=== PATIENT | female | born 1965 | race Caucasian/White ===

== ENCOUNTER 2017-10-05 10:07 | Emergency (ER) | payer OTHER ==
[~2017-10-05] VITALS: Ht 162.6 cm; Wt 72.6 kg
[~2017-10-05 10:07] MED LIST: MEDROLDOSEPACK PO; PREDNISONE50 MG PO; PROAIR HFA8.5 GM PO; VENTOLIN HFA 1818 GM INH
[2017-10-05] MEDS ORDERED: PREDNISONE 20 M20 MG PO (13:20)
[2017-10-05 13:26] VITALS: BP 152/56
== END 2017-10-05 13:27 | disposition home or self-care (01) ==
LOC: M.ERS 10:07
DX: J45.901 Unspecified asthma with (acute) exacerbation (principal); F41.9 Anxiety disorder, unspecified; F17.210 Nicotine dependence, cigarettes, uncomplicated; Z88.5 Allergy status to narcotic agent

== ENCOUNTER 2017-10-28 22:41 | Emergency (ER) | payer OTHER ==
[~2017-10-28] VITALS: Ht 162.6 cm; Wt 72.6 kg
[~2017-10-28 22:41] MED LIST changes: +PREDNISONE 20 M20 MG PO
[2017-10-29] MEDS ORDERED: PREDNISONE50 MG PO (00:23)
[2017-10-29] MEDS ORDERED: NEBULIZER MISCELL (00:23)
[2017-10-29] MEDS ORDERED: DUONEB 2.5-0.5 M3 ML INH (00:23)
[2017-10-29 01:28] VITALS: BP 114/54
== END 2017-10-29 01:30 | disposition home or self-care (01) ==
LOC: M.ERS 22:41
DX: J44.1 Chronic obstructive pulmonary disease with (acute) exacerbation (principal); F41.9 Anxiety disorder, unspecified; F17.210 Nicotine dependence, cigarettes, uncomplicated; Z88.5 Allergy status to narcotic agent

== ENCOUNTER 2017-11-01 07:07 | Emergency (ER) | payer OTHER ==
[~2017-11-01] VITALS: Ht 162.6 cm; Wt 74.8 kg
[~2017-11-01 07:07] MED LIST changes: +DUONEB 2.5-0.5 M3 ML INH; +NEBULIZER MISCELL
[2017-11-01 07:56] LABS: HEMATOCRIT 41.2 % (37.0-47.0); HEMOGLOBIN 13.3 gm/dL (12.0-15.0); MCH 26.7 pg (26.0-34.0); MCHC 32.3 g/dL (28.0-37.0); MCV 82.6 fL (80.0-100.0); MPV 7.5 fl. (7.2-11.1); RBC 4.99 mil/uL (4.20-5.00); RDW-CV 15.4 % (10.5-14.5)
[2017-11-01 08:03] LABS: ANION GAP 10 mmol/L (7-16); BUN 26 mg/dL (7-18); CHLORIDE 105 mmol/L (98-107); CO2 23 mmol/L (21-32); GLUCOSE 115 mg/dL (70-99); POTASSIUM 3.8 mmol/L (3.5-5.1); SODIUM 138 mmol/L (136-145)
[2017-11-01 08:11] LABS: TROPONIN-I LEVEL <0.06 ng/mL (<0.06)
[2017-11-01] MEDS ORDERED: VENTOLIN HFA 1818 GM INH (08:53)
[2017-11-01] MEDS ORDERED: ALBUTEROL2.5 MG/0.5 INH (08:55)
[2017-11-01 09:02] VITALS: BP 110/56
== END 2017-11-01 09:03 | disposition home or self-care (01) ==
LOC: M.ERS 07:07
PROVIDERS: Emergency Medicine Emergency Medical Services
DX: J45.901 Unspecified asthma with (acute) exacerbation (principal); F41.9 Anxiety disorder, unspecified; F17.210 Nicotine dependence, cigarettes, uncomplicated; Z88.5 Allergy status to narcotic agent

== ENCOUNTER 2018-01-21 14:00 | Emergency (ER) | payer OTHER ==
[~2018-01-21] VITALS: Ht 162.6 cm; Wt 73.0 kg
[~2018-01-21 14:00] MED LIST changes: +ALBUTEROL2.5 MG/0.5 INH
[2018-01-21 14:22] LABS: ABSOLUTE BASOPHILS 0.1 thou/uL (0.0-0.2); ABSOLUTE EOSINOPHILS 0.4 thou/uL (0.0-0.7); ABSOLUTE LYMPHOCYTES 2.2 thou/uL (0.8-5.3); ABSOLUTE MONOCYTES 0.6 thou/uL (0.0-1.2); ABSOLUTE NEUTROPHILS 3.9 thou/uL (1.6-8.1); EOSINOPHILS 5.2 %; HEMATOCRIT 42.8 % (37.0-47.0); HEMOGLOBIN 13.9 gm/dL (12.0-15.0); LYMPHOCYTES 31.2 %; MCH 26.2 pg (26.0-34.0); MCHC 32.6 g/dL (28.0-37.0); MCV 80.3 fL (80.0-100.0); MONOCYTES 8.1 %; MPV 7.9 fl. (7.2-11.1); NUCLEATED RBCS 0 /100WBC; PLATELET COUNT* 304 thou/uL (150-400); POLYS 54.5 %; RBC 5.33 mil/uL (4.20-5.00); RDW-CV 16.2 % (10.5-14.5); WBC 7.2 thou/uL (4.0-11.0)
[2018-01-21 14:33] LABS: CALCIUM 8.9 mg/dL (8.5-10.1); CREATININE 0.8 mg/dL (0.6-1.3); POTASSIUM 4.1 mmol/L (3.5-5.1)
[2018-01-21 14:37] LABS: ALBUMIN 3.6 g/dL (3.4-5.0); TOTAL BILIRUBIN 0.3 mg/dL (<0.1-1.0)
[2018-01-21] MEDS ORDERED: MEDROL DOSPAK21 TA1 PO (14:57)
[2018-01-21 15:05] VITALS: BP 111/57
== END 2018-01-21 15:06 | disposition home or self-care (01) ==
LOC: M.ERS 14:00
PROVIDERS: Emergency Medicine
DX: J45.901 Unspecified asthma with (acute) exacerbation (principal); F41.9 Anxiety disorder, unspecified; Z88.5 Allergy status to narcotic agent; F17.210 Nicotine dependence, cigarettes, uncomplicated

== ENCOUNTER 2018-05-30 23:13 | Emergency (ER) | payer OTHER ==
[~2018-05-30] VITALS: Ht 160 cm; Wt 73.0 kg
[~2018-05-30 23:13] MED LIST changes: +MEDROL DOSPAK21 TA1 PO
[2018-05-30 23:15] VITALS: BP 139/59
[2018-05-30] MEDS ORDERED: NOHOMEMEDICATIONS (23:22)
[2018-05-30] MEDS ORDERED: PREDNISONE50 MG PO (23:30)
[2018-05-30] MEDS ORDERED: PROAIR HFA8.5 GM INH (23:30)
== END 2018-05-30 23:40 | disposition home or self-care (01) ==
LOC: M.ERS 23:13
DX: J45.909 Unspecified asthma, uncomplicated (principal); Z76.0 Encounter for issue of repeat prescription; F41.9 Anxiety disorder, unspecified; F17.210 Nicotine dependence, cigarettes, uncomplicated; Z88.6 Allergy status to analgesic agent

== ENCOUNTER 2018-06-02 09:57 | Inpatient (IN) | payer OTHER ==
[~2018-06-02] VITALS: Ht 160 cm; Wt 83.9 kg
[~2018-06-02 09:57] MED LIST changes: +NOHOMEMEDICATIONS; +PROAIR HFA8.5 GM INH
[2018-06-02 10:01] VITALS: BP 186/72
[2018-06-02 11:33] LABS: ABSOLUTE BASOPHILS 0.1 thou/uL (0.0-0.2); ABSOLUTE EOSINOPHILS 0.3 thou/uL (0.0-0.7); ABSOLUTE LYMPHOCYTES 1.7 thou/uL (0.8-5.3); ABSOLUTE MONOCYTES 0.7 thou/uL (0.0-1.2); ABSOLUTE NEUTROPHILS 4.7 thou/uL (1.6-8.1); BASOPHILS 1.2 %; EOSINOPHILS 4.1 %; HEMATOCRIT 41.8 % (37.0-47.0); HEMOGLOBIN 13.3 gm/dL (12.0-15.0); LYMPHOCYTES 23.2 %; MCH 26.8 pg (26.0-34.0); MCHC 31.9 g/dL (28.0-37.0); MONOCYTES 8.9 %; MPV 7.9 fl. (7.2-11.1); NUCLEATED RBCS 0 /100WBC; PLATELET COUNT* 323 thou/uL (150-400); POLYS 62.6 %; RBC 4.97 mil/uL (4.20-5.00); RDW-CV 15.8 % (10.5-14.5); WBC 7.5 thou/uL (4.0-11.0)
[2018-06-02 11:40] LABS: ANION GAP 5 mmol/L (7-16); APTT 26.4 Seconds (25.0-31.3); BUN 21 mg/dL (7-18); CALCIUM 8.7 mg/dL (8.5-10.1); CHLORIDE 104 mmol/L (98-107); CO2 31 mmol/L (21-32); CREATININE 0.7 mg/dL (0.6-1.3); GLUCOSE 108 mg/dL (70-99); INR 1.1; POTASSIUM 4.2 mmol/L (3.5-5.1); PROTIME 10.9 Seconds (9.20-11.50); SODIUM 140 mmol/L (136-145)
[2018-06-02 11:51] LABS: ALBUMIN 3.4 g/dL (3.4-5.0); ALKALINE PHOSPHATASE 60 U/L (46-116); LIPASE 150 U/L (73-393); NT-PRO BRAIN NAT PEPTIDE 115 pg/mL (<300); SGOT 14 U/L (15-37); SGPT 19 U/L (30-65); TOTAL BILIRUBIN 0.2 mg/dL (<0.1-1.0); TOTAL PROTEIN 7.9 g/dL (6.4-8.2); TROPONIN-I LEVEL <0.06 ng/mL (<0.06)
[2018-06-02 12:17] VITALS: BP 120/57
[2018-06-02 12:33] VITALS: BP 116/51
[2018-06-02 16:15] VITALS: BP 122/63
--- NOTE | 2018-06-02 17:15 | EKG ---
[place] [address] ELECTROCARDIOGRAM REPORT Name: GEORGE BEE Room: [address] ADM IN [facility]#: [id number] Admission: 06/02/18 Attend Phys: Pelon Weaver MD Discharge: Date of : 67 Report #: [id number] THIS REPORT FOR: //name// [facility] ED Test Date: 2018-06-02 Test Time: 10:20:55 Pat Name: GEORGE BEE Department: Room: [facility] Gender: Biodiesel Product Development Manager: Rinku GOLDEN : 1965 Requested By: Filipe Nassar Order Number: [id number] MD: Anderson Degroot Measurements Intervals [place] Rate: 68 P: 80 [place]: 180 QRS: 14 QRSD: 107 T: 56 QT: 429 QTc: 457 Interpretive Statements Sinus rhythm Compared to ECG 09/03/2017 03:04:38 ST (T wave) deviation no longer present Electronically Signed On 06-02-2018 17:15:07 CDT by Anderson Degroot [email or web address] <ELECTRONICALLY SIGNED> By: Anderson Degroot MD, [facility] 06/02/18 1022 1020 1020 Anderson Degroot MD, [facility] /EPI
[2018-06-02 20:00] VITALS: BP 126/67
[2018-06-03] VITALS: BP 132/60
[2018-06-03 04:00] VITALS: BP 112/79
[2018-06-03 04:12] LABS: NUCLEATED RBCS 0 /100WBC; RDW-CV 15.8 % (10.5-14.5)
[2018-06-03 04:15] LABS: HEMATOCRIT 39.3 % (37.0-47.0); HEMOGLOBIN 12.8 gm/dL (12.0-15.0); MCHC 32.5 g/dL (28.0-37.0); MCV 83.1 fL (80.0-100.0); MPV 8.3 fl. (7.2-11.1); PLATELET COUNT* 281 thou/uL (150-400); RBC 4.73 mil/uL (4.20-5.00); WBC 15.8 thou/uL (4.0-11.0)
[2018-06-03 04:42] LABS: CALCIUM 8.7 mg/dL (8.5-10.1); POTASSIUM 4.2 mmol/L (3.5-5.1)
[2018-06-03 05:54] LABS: ABSOLUTE LYMPHOCYTES 0.5 thou/uL (0.8-5.3); ABSOLUTE MONOCYTES 0.2 thou/uL (0.0-1.2); ABSOLUTE NEUTROPHILS 15.2 thou/uL (1.6-8.1)
[2018-06-03 05:55] LABS: ANISOCYTOSIS 1+; OVALOCYTES 1+; PLATELET ESTIMATE ADEQUATE; POIKILOCYTOSIS 1+
[2018-06-03 07:30] VITALS: BP 118/67
[2018-06-03 09:10] VITALS: BP 118/67
[2018-06-03] MEDS ORDERED: PROTONIX40 M2 PO (10:06)
[2018-06-03] MEDS ORDERED: PREDNISONE 10 M10 MG PO (10:07)
[2018-06-03] MEDS ORDERED: AZITHROMYCIN 2250 MG PO (10:08)
[2018-06-03] MEDS ORDERED: VENTOLIN HFA 1818 GM INH (10:09)
[2018-06-03 10:12] VITALS: BP 118/67
== END 2018-06-03 14:10 | disposition home or self-care (01) | DRG 202 ==
LOC: M.ERS 09:57 → M.TBA-ER 11:46 → M.ORTHSURG 11:46
PROVIDERS: Family Medicine; ADMIT Internal Medicine
DX: J45.901 Unspecified asthma with (acute) exacerbation (principal); J44.1 Chronic obstructive pulmonary disease with (acute) exacerbation; F41.9 Anxiety disorder, unspecified; F17.210 Nicotine dependence, cigarettes, uncomplicated; Z79.899 Other long term (current) drug therapy; Z88.6 Allergy status to analgesic agent; Z71.6 Tobacco abuse counseling

== ENCOUNTER 2018-06-14 07:44 | Emergency (ER) | payer OTHER ==
[~2018-06-14] VITALS: Ht 160 cm; Wt 83.1 kg
[~2018-06-14 07:44] MED LIST changes: +AZITHROMYCIN 2250 MG PO; +PREDNISONE 10 M10 MG PO; +PROTONIX40 M2 PO
[2018-06-14] MEDS ORDERED: VENTOLIN HFA 1818 GM INH (07:52)
[2018-06-14] MEDS ORDERED: PREDNISONE 20 M20 M1 PO (07:52)
[2018-06-14 08:05] VITALS: BP 90/60
--- NOTE | 2018-06-15 10:43 | EKG ---
[place] [address] ELECTROCARDIOGRAM REPORT Name: GEORGE BEE Room: [facility]#: [id number] Admission: 06/14/18 Attend Phys: Discharge: 06/14/18 Date of : 67 Report #: [id number] THIS REPORT FOR: //name// [facility] ED Test Date: 2018-06-14 Test Time: 07:49:02 Pat Name: GEORGE BEE Department: Room: Gender: F Microbiology Lab Manager: TREMAYNE : 1965 Requested By: Filipe Nassar Order Number: [id number] MD: Anderson Degroot Measurements Intervals [place] Rate: 76 P: [place]: QRS: -2 QRSD: 113 T: 54 QT: 436 QTc: 491 Interpretive Statements sinus rhythm Borderline intraventricular conduction delay artifact noted Borderline prolonged QT interval Compared to ECG 06/02/2018 10:20:55 no change Electronically Signed On 06-15-2018 10:42:50 CDT by Anderson Degroot [email or web address] <ELECTRONICALLY SIGNED> By: Anderson Degroot MD, [facility] 06/15/18 1042 0749 0749 Anderson Degroot MD, FACC /EPI
== END 2018-06-14 08:06 | disposition home or self-care (01) ==
LOC: M.ERS 07:44
DX: J45.901 Unspecified asthma with (acute) exacerbation (principal)

== ENCOUNTER 2018-06-20 04:14 | Emergency (ER) | payer OTHER ==
[~2018-06-20] VITALS: Ht 160 cm; Wt 77.1 kg
[~2018-06-20 04:14] MED LIST changes: +PREDNISONE 20 M20 M1 PO
[2018-06-20 04:54] LABS: ABSOLUTE BASOPHILS 0.1 thou/uL (0.0-0.2); ABSOLUTE EOSINOPHILS 0.6 thou/uL (0.0-0.7); ABSOLUTE LYMPHOCYTES 2.1 thou/uL (0.8-5.3); ABSOLUTE MONOCYTES 0.7 thou/uL (0.0-1.2); ABSOLUTE NEUTROPHILS 4.9 thou/uL (1.6-8.1); EOSINOPHILS 6.7 %; HEMATOCRIT 41.9 % (37.0-47.0); HEMOGLOBIN 13.5 gm/dL (12.0-15.0); LYMPHOCYTES 25.1 %; MCH 26.9 pg (26.0-34.0); MCHC 32.3 g/dL (28.0-37.0); MCV 83.1 fL (80.0-100.0); NUCLEATED RBCS 0 /100WBC; PLATELET COUNT* 318 thou/uL (150-400); POLYS 59.2 %; RBC 5.04 mil/uL (4.20-5.00); RDW-CV 16.4 % (10.5-14.5); WBC 8.3 thou/uL (4.0-11.0)
[2018-06-20 05:20] LABS: ANION GAP 4 mmol/L (7-16); BUN 14 mg/dL (7-18); CALCIUM 9.2 mg/dL (8.5-10.1); CHLORIDE 107 mmol/L (98-107); CO2 30 mmol/L (21-32); CREATININE 0.9 mg/dL (0.6-1.3); GLUCOSE 97 mg/dL (70-99); POTASSIUM 3.7 mmol/L (3.5-5.1); SODIUM 141 mmol/L (136-145)
[2018-06-20 05:21] LABS: INR 1.1; PROTIME 11.2 Seconds (9.20-11.50)
[2018-06-20 05:30] LABS: ALBUMIN 3.6 g/dL (3.4-5.0); ALKALINE PHOSPHATASE 69 U/L (46-116); NT-PRO BRAIN NAT PEPTIDE 304 pg/mL (<300); SGOT 15 U/L (15-37); SGPT 40 U/L (30-65); TOTAL BILIRUBIN 0.4 mg/dL (<0.1-1.0); TOTAL PROTEIN 7.6 g/dL (6.4-8.2); TROPONIN-I LEVEL <0.06 ng/mL (<0.06)
[2018-06-20] MEDS ORDERED: PREDNISONE50 MG PO (05:49)
[2018-06-20] MEDS ORDERED: LASIX 20 MG TAB20 MG PO (05:49)
[2018-06-20 06:11] VITALS: BP 129/51
--- NOTE | 2018-06-20 15:10 | EKG ---
[place] [address] ELECTROCARDIOGRAM REPORT Name: GEORGE BEE Room: [facility]#: [id number] Admission: 06/20/18 Attend Phys: Discharge: 06/20/18 Date of : 67 Report #: [id number] THIS REPORT FOR: //name// [facility] ED Test Date: 2018-06-20 Test Time: 04:44:55 Pat Name: GEORGE BEE Department: Room: Gender: F Grease Buffer: EDDIE : 1965 Requested By: Merry Li Order Number: [id number] MD: Ozzy Coker Measurements Intervals [place] Rate: 79 P: 55 RI: 157 QRS: 7 QRSD: 109 T: 51 QT: 424 QTc: 487 Interpretive Statements Sinus rhythm Borderline prolonged QT interval Baseline wander in lead(s) I,III,aVL Compared to ECG 06/14/2018 07:49:02 No significant changes Electronically Signed On 06-20-2018 15:10:33 CDT by Ozzy Coker [email or web address] <ELECTRONICALLY SIGNED> By: Fany Coker MD, [facility] 06/20/18 1510 0444 0444 Fany Coker MD, [facility] /EPI
== END 2018-06-20 06:00 | disposition home or self-care (01) ==
LOC: M.ERS 04:14
PROVIDERS: Emergency Medicine
DX: J98.01 Acute bronchospasm (principal); F41.9 Anxiety disorder, unspecified; Z90.49 Acquired absence of other specified parts of digestive tract

== ENCOUNTER 2018-06-27 22:20 | Emergency (ER) | payer OTHER ==
[~2018-06-27] VITALS: Ht 160 cm; Wt 86.2 kg
[~2018-06-27 22:20] MED LIST changes: +LASIX 20 MG TAB20 MG PO
[2018-06-28 00:59] VITALS: BP 115/41
== END 2018-06-28 01:00 | disposition home or self-care (01) ==
LOC: M.ERS 22:20
DX: J45.901 Unspecified asthma with (acute) exacerbation (principal); F41.9 Anxiety disorder, unspecified; F17.210 Nicotine dependence, cigarettes, uncomplicated; Z88.6 Allergy status to analgesic agent

== ENCOUNTER 2018-08-06 20:29 | Emergency (ER) | payer OTHER ==
[~2018-08-06] VITALS: Ht 160 cm; Wt 87.1 kg
[2018-08-06] MEDS ORDERED: VENTOLIN HFA 1818 GM INH (20:45)
[2018-08-06] MEDS ORDERED: PREDNISONE 20 M20 M1 PO (20:45)
[2018-08-06 21:35] VITALS: BP 134/72
--- NOTE | 2018-08-07 12:26 | EKG ---
[place] [address] ELECTROCARDIOGRAM REPORT Name: GEORGE BEE Room: [facility]#: [id number] Admission: 08/06/18 Attend Phys: Discharge: 08/06/18 Date of : 67 Report #: [id number] THIS REPORT FOR: //name// [facility] ED Test Date: 2018-08-06 Test Time: 20:40:50 Pat Name: GEORGE BEE Department: Room: Gender: F Submersible Pilot: SHAWN : 1965 Requested By: Filipe Nassar Order Number: [id number] MD: Anderson Degroot Measurements Intervals [place] Rate: 86 P: 70 VT: 157 QRS: -1 QRSD: 99 T: 60 QT: 387 QTc: 463 Interpretive Statements Sinus rhythm Compared to ECG 06/20/2018 04:44:55 No significant changes Electronically Signed On 08-07-2018 12:26:13 COIL REWIND MACHINE OPERATOR by Anderson Degroot [email or web address] <ELECTRONICALLY SIGNED> By: Anderson Degroot MD, [facility] 08/07/18 1226 204 39 Anderson Degroot MD, FACC /EPI
== END 2018-08-06 21:37 | disposition home or self-care (01) ==
LOC: M.ERS 20:29
DX: J45.901 Unspecified asthma with (acute) exacerbation (principal); F41.9 Anxiety disorder, unspecified; Z88.6 Allergy status to analgesic agent

== ENCOUNTER 2018-08-17 23:53 | Emergency (ER) | payer OTHER ==
[~2018-08-17] VITALS: Ht 160 cm; Wt 72.6 kg
[2018-08-18 00:28] LABS: ABSOLUTE BASOPHILS 0.1 thou/uL (0.0-0.2); ABSOLUTE EOSINOPHILS 0.5 thou/uL (0.0-0.7); ABSOLUTE LYMPHOCYTES 1.9 thou/uL (0.8-5.3); ABSOLUTE MONOCYTES 0.8 thou/uL (0.0-1.2); ABSOLUTE NEUTROPHILS 5.3 thou/uL (1.6-8.1); BASOPHILS 1.4 %; EOSINOPHILS 5.3 %; HEMATOCRIT 39.9 % (37.0-47.0); LYMPHOCYTES 21.9 %; MCH 27.1 pg (26.0-34.0); MCHC 32.5 g/dL (28.0-37.0); MCV 83.4 fL (80.0-100.0); MONOCYTES 9.5 %; MPV 7.7 fl. (7.2-11.1); NUCLEATED RBCS 0 /100WBC; PLATELET COUNT* 323 thou/uL (150-400); POLYS 61.9 %; RBC 4.79 mil/uL (4.20-5.00); RDW-CV 16.6 % (10.5-14.5); WBC 8.5 thou/uL (4.0-11.0)
[2018-08-18 00:37] LABS: CALCIUM 9.2 mg/dL (8.5-10.1); CREATININE 0.9 mg/dL (0.6-1.3); POTASSIUM 4.3 mmol/L (3.5-5.1)
[2018-08-18 00:42] LABS: ALBUMIN 3.3 g/dL (3.4-5.0); TOTAL BILIRUBIN 0.3 mg/dL (<0.1-1.0); TOTAL PROTEIN 7.3 g/dL (6.4-8.2)
[2018-08-18] MEDS ORDERED: PROAIR HFA8.5 GM INH (01:23)
[2018-08-18 01:35] VITALS: BP 112/51
== END 2018-08-18 01:35 | disposition home or self-care (01) ==
LOC: M.ERS 23:53
PROVIDERS: Emergency Medicine
DX: J45.901 Unspecified asthma with (acute) exacerbation (principal); F41.9 Anxiety disorder, unspecified; Z90.49 Acquired absence of other specified parts of digestive tract; F17.210 Nicotine dependence, cigarettes, uncomplicated; Z88.5 Allergy status to narcotic agent

== ENCOUNTER 2018-08-27 10:43 | Emergency (ER) | payer OTHER ==
[~2018-08-27] VITALS: Ht 177.8 cm; Wt 72.6 kg
[2018-08-27 11:05] LABS: ABSOLUTE BASOPHILS 0.1 thou/uL (0.0-0.2); ABSOLUTE EOSINOPHILS 0.3 thou/uL (0.0-0.7); ABSOLUTE LYMPHOCYTES 1.7 thou/uL (0.8-5.3); ABSOLUTE MONOCYTES 0.7 thou/uL (0.0-1.2); ABSOLUTE NEUTROPHILS 3.7 thou/uL (1.6-8.1); BASOPHILS 0.9 %; EOSINOPHILS 4.6 %; HEMATOCRIT 40.5 % (37.0-47.0); HEMOGLOBIN 13.2 gm/dL (12.0-15.0); LYMPHOCYTES 26.3 %; MCH 27.4 pg (26.0-34.0); MCHC 32.6 g/dL (28.0-37.0); MONOCYTES 11.3 %; MPV 7.5 fl. (7.2-11.1); NUCLEATED RBCS 0 /100WBC; PLATELET COUNT* 299 thou/uL (150-400); POLYS 56.9 %; RBC 4.82 mil/uL (4.20-5.00); RDW-CV 16.5 % (10.5-14.5); WBC 6.4 thou/uL (4.0-11.0)
[2018-08-27 11:13] LABS: ANION GAP 9 mmol/L (7-16); BUN 15 mg/dL (7-18); CALCIUM 8.8 mg/dL (8.5-10.1); CHLORIDE 106 mmol/L (98-107); CO2 27 mmol/L (21-32); CREATININE 0.9 mg/dL (0.6-1.3); GLUCOSE 95 mg/dL (70-99); POTASSIUM 3.4 mmol/L (3.5-5.1); SODIUM 142 mmol/L (136-145)
[2018-08-27 11:20] LABS: ALBUMIN 3.5 g/dL (3.4-5.0); ALKALINE PHOSPHATASE 66 U/L (46-116); LIPASE 80 U/L (73-393); SGOT 14 U/L (15-37); SGPT 25 U/L (30-65); TOTAL BILIRUBIN 0.3 mg/dL (<0.1-1.0); TOTAL PROTEIN 7.5 g/dL (6.4-8.2); TROPONIN-I LEVEL <0.06 ng/mL (<0.06)
[2018-08-27 12:28] LABS: URINE BILIRUBIN NEGATIVE (Negative); URINE BLOOD NEGATIVE (Negative); URINE CLARITY CLEAR; URINE COLOR YELLOW; URINE GLUCOSE-RANDOM NEGATIVE (Negative); URINE KETONES NEGATIVE (Negative); URINE LEUKOCYTES-REFLEX NEGATIVE (Negative); URINE NITRITE-REFLEX NEGATIVE (Negative); URINE PROTEIN NEGATIVE (Negative); URINE SPECIFIC GRAVITY 1.015 (1.005-1.030); URINE UROBILINOGEN 0.2 E.U./dl (0.2-1.0)
[2018-08-27] MEDS ORDERED: KEFLEX500 M1 PO (12:50)
[2018-08-27] MEDS ORDERED: PROAIR HFA8.5 GM INH (12:50)
[2018-08-27 13:12] VITALS: BP 108/52
--- NOTE | 2018-08-27 14:41 | EKG ---
[place] [address] ELECTROCARDIOGRAM REPORT Name: GEORGE BEE Room: [facility]#: [id number] Admission: 08/27/18 Attend Phys: Discharge: 08/27/18 Date of : 67 Report #: [id number] THIS REPORT FOR: //name// [facility] ED Test Date: 2018-08-27 Test Time: 11:00:38 Pat Name: GEORGE BEE Department: Room: Gender: F Cathodic Protection Technician: Rinku WEBB : 1965 Requested By: Becki Aguilar Order Number: [id number] MD: Anderson Degroot Measurements Intervals [place] Rate: 69 P: 59 [place]: 166 QRS: 11 QRSD: 103 T: 52 QT: 431 QTc: 462 Interpretive Statements Sinus rhythm artifact noted Baseline wander in lead(s) V6 Compared to ECG 08/06/2018 20:40:50 no change Electronically Signed On 08-27-2018 14:40:45 LINKING MACHINE OPERATOR by Anderson Degroot [email or web address] <ELECTRONICALLY SIGNED> By: Anderson Degroot MD, [facility] 08/27/18 1440 1100 1100 Anderson Degroot MD, [facility] /EPI
== END 2018-08-27 13:14 | disposition home or self-care (01) ==
LOC: M.ERS 10:43
PROVIDERS: Physician Assistant
DX: J20.9 Acute bronchitis, unspecified (principal); R59.1 Generalized enlarged lymph nodes; R10.11 Right upper quadrant pain; R10.13 Epigastric pain; R10.31 Right lower quadrant pain; F41.9 Anxiety disorder, unspecified; F17.210 Nicotine dependence, cigarettes, uncomplicated; Z88.6 Allergy status to analgesic agent

== ENCOUNTER 2019-08-15 03:53 | Emergency (ER) | payer OTHER ==
[~2019-08-15] VITALS: Ht 160 cm; Wt 72.6 kg
[~2019-08-15 03:53] MED LIST changes: +KEFLEX500 M1 PO
[2019-08-15] MEDS ORDERED: MEDROL DOSPAK21 TA1 PO (05:09)
[2019-08-15] MEDS ORDERED: VENTOLIN HFA 1818 GM INH (05:09)
[2019-08-15 05:15] VITALS: BP 100/78
== END 2019-08-15 05:15 | disposition home or self-care (01) ==
LOC: M.ERS 03:53
DX: J45.901 Unspecified asthma with (acute) exacerbation (principal); F41.9 Anxiety disorder, unspecified; F17.210 Nicotine dependence, cigarettes, uncomplicated; Z90.49 Acquired absence of other specified parts of digestive tract; Z88.5 Allergy status to narcotic agent

== ENCOUNTER 2019-08-27 15:30 | Emergency (ER) | payer OTHER ==
[~2019-08-27] VITALS: Ht 160 cm; Wt 72.6 kg
[2019-08-27] MEDS ORDERED: PREDNISONE 20 M20 M1 PO (15:52)
[2019-08-27 16:57] VITALS: BP 148/55
== END 2019-08-27 17:00 | disposition home or self-care (01) ==
LOC: M.ERS 15:30
DX: J45.901 Unspecified asthma with (acute) exacerbation (principal); F41.9 Anxiety disorder, unspecified; F17.210 Nicotine dependence, cigarettes, uncomplicated; Z90.49 Acquired absence of other specified parts of digestive tract; Z88.5 Allergy status to narcotic agent

== ENCOUNTER 2021-04-01 21:18 | Inpatient (IN) | payer OTHER ==
[~2021-04-01] VITALS: Ht 160 cm; Wt 90.7 kg
[2021-04-01 22:11] LABS: ABSOLUTE BASOPHILS 0.1 thou/uL (0.0-0.2); ABSOLUTE EOSINOPHILS 0.4 thou/uL (0.0-0.7); ABSOLUTE LYMPHOCYTES 1.5 thou/uL (0.8-5.3); ABSOLUTE NEUTROPHILS 11.9 thou/uL (1.6-8.1); BASOPHILS 0.9 %; EOSINOPHILS 2.5 %; HEMATOCRIT 41.7 % (37.0-47.0); HEMOGLOBIN 13.7 gm/dL (12.0-15.0); LYMPHOCYTES 9.8 %; MCH 26.6 pg (26.0-34.0); MCHC 32.7 g/dL (28.0-37.0); MCV 81.1 fL (80.0-100.0); MONOCYTES 6.7 %; NUCLEATED RBCS 0 /100WBC; POLYS 80.1 %; RBC 5.14 mil/uL (4.20-5.00); RDW-CV 15.9 % (10.5-14.5); WBC 14.8 thou/uL (4.0-11.0)
[2021-04-01 22:13] LABS: CREATININE 0.9 mg/dL (0.6-1.3)
[2021-04-01 22:17] LABS: ALBUMIN 3.4 g/dL (3.4-5.0); MAGNESIUM 2.2 mg/dL (1.8-2.4); TOTAL BILIRUBIN 0.4 mg/dL (<0.1-1.0); TOTAL PROTEIN 9.4 g/dL (6.4-8.2)
[2021-04-01 22:37] LABS: PLATELET ESTIMATE INCREASED
[2021-04-01 22:41] LABS: PLATELET COUNT* 541 thou/uL (150-400)
[2021-04-01 23:29] LABS: URINE BILIRUBIN NEGATIVE (Negative); URINE BLOOD NEGATIVE (Negative); URINE CLARITY CLEAR; URINE COLOR YELLOW; URINE GLUCOSE-RANDOM NEGATIVE (Negative); URINE KETONES TRACE (Negative); URINE LEUKOCYTES-REFLEX NEGATIVE (Negative); URINE NITRITE-REFLEX NEGATIVE (Negative); URINE PROTEIN NEGATIVE (Negative); URINE UROBILINOGEN 0.2 E.U./dl (0.2-1.0)
[2021-04-02 04:24] VITALS: BP 156/82
[2021-04-02 08:49] VITALS: BP 166/83
[2021-04-02 12:34] VITALS: BP 135/72
[2021-04-02 13:32] VITALS: BP 135/72
[2021-04-02 20:18] VITALS: BP 175/90
[2021-04-02 23:54] VITALS: BP 130/55
[2021-04-03 05:30] LABS: HEMATOCRIT 31.2 % (37.0-47.0); MCH 26.6 pg (26.0-34.0); MCHC 33.2 g/dL (28.0-37.0); MCV 80.2 fL (80.0-100.0); MPV 6.6 fl. (7.2-11.1); RBC 3.89 mil/uL (4.20-5.00); RDW-CV 16.3 % (10.5-14.5); WBC 10.9 thou/uL (4.0-11.0)
[2021-04-03 05:35] LABS: CREATININE 0.9 mg/dL (0.6-1.3); HEMOGLOBIN 10.3 gm/dL (12.0-15.0); POTASSIUM 4.2 mmol/L (3.5-5.1)
[2021-04-03 07:50] VITALS: BP 133/61
[2021-04-03 16:44] VITALS: BP 120/37
[2021-04-03 17:23] LABS: ABSOLUTE BASOPHILS 0.1 thou/uL (0.0-0.2); ABSOLUTE EOSINOPHILS 0.1 thou/uL (0.0-0.7); ABSOLUTE MONOCYTES 1.3 thou/uL (0.0-1.2); ABSOLUTE NEUTROPHILS 10.4 thou/uL (1.6-8.1); EOSINOPHILS 0.4 %; HEMATOCRIT 30.9 % (37.0-47.0); HEMOGLOBIN 10.1 gm/dL (12.0-15.0); LYMPHOCYTES 14.7 %; MCH 26.2 pg (26.0-34.0); MCHC 32.6 g/dL (28.0-37.0); MCV 80.3 fL (80.0-100.0); MPV 6.6 fl. (7.2-11.1); NUCLEATED RBCS 0 /100WBC; PLATELET COUNT* 443 thou/uL (150-400); POLYS 74.9 %; RBC 3.86 mil/uL (4.20-5.00); RDW-CV 15.7 % (10.5-14.5); WBC 13.8 thou/uL (4.0-11.0)
[2021-04-03 20:00] VITALS: BP 112/47
[2021-04-04 04:56] LABS: HEMATOCRIT 29.3 % (37.0-47.0); HEMOGLOBIN 9.9 gm/dL (12.0-15.0); MCHC 33.7 g/dL (28.0-37.0); MCV 80.2 fL (80.0-100.0); MPV 6.6 fl. (7.2-11.1); RBC 3.66 mil/uL (4.20-5.00); RDW-CV 15.7 % (10.5-14.5); WBC 9.7 thou/uL (4.0-11.0)
[2021-04-04 05:00] LABS: CALCIUM 7.8 mg/dL (8.5-10.1); POTASSIUM 3.7 mmol/L (3.5-5.1)
[2021-04-04 08:10] VITALS: BP 149/83
[2021-04-04 16:23] VITALS: BP 122/74
[2021-04-04 20:30] VITALS: BP 152/71
[2021-04-05 06:45] LABS: HEMOGLOBIN 10.3 gm/dL (12.0-15.0); MCH 26.9 pg (26.0-34.0); MCHC 33.4 g/dL (28.0-37.0); MCV 80.6 fL (80.0-100.0); MPV 6.4 fl. (7.2-11.1); RBC 3.84 mil/uL (4.20-5.00); RDW-CV 15.9 % (10.5-14.5); WBC 10.3 thou/uL (4.0-11.0)
[2021-04-05 06:52] LABS: CALCIUM 7.9 mg/dL (8.5-10.1); CREATININE 1.1 mg/dL (0.6-1.3); POTASSIUM 3.5 mmol/L (3.5-5.1)
[2021-04-05 07:55] VITALS: BP 110/89
[2021-04-05 16:55] VITALS: BP 114/59
[2021-04-06 05:26] LABS: ALBUMIN 2.2 g/dL (3.4-5.0); CREATININE 1.3 mg/dL (0.6-1.3); POTASSIUM 3.3 mmol/L (3.5-5.1); TOTAL BILIRUBIN 0.2 mg/dL (<0.1-1.0); TOTAL PROTEIN 6.6 g/dL (6.4-8.2)
[2021-04-06 05:29] LABS: ABSOLUTE BASOPHILS 0.1 thou/uL (0.0-0.2); ABSOLUTE EOSINOPHILS 0.3 thou/uL (0.0-0.7); ABSOLUTE LYMPHOCYTES 2.3 thou/uL (0.8-5.3); ABSOLUTE MONOCYTES 0.8 thou/uL (0.0-1.2); ABSOLUTE NEUTROPHILS 7.7 thou/uL (1.6-8.1); BASOPHILS 0.9 %; EOSINOPHILS 3.1 %; HEMOGLOBIN 9.9 gm/dL (12.0-15.0); LYMPHOCYTES 20.3 %; MCH 26.3 pg (26.0-34.0); MCHC 33.1 g/dL (28.0-37.0); MCV 79.5 fL (80.0-100.0); MONOCYTES 7.4 %; MPV 6.4 fl. (7.2-11.1); NUCLEATED RBCS 0 /100WBC; PLATELET COUNT* 422 thou/uL (150-400); POLYS 68.3 %; RBC 3.77 mil/uL (4.20-5.00); RDW-CV 15.3 % (10.5-14.5); WBC 11.3 thou/uL (4.0-11.0)
[2021-04-06 07:30] VITALS: BP 124/46
[2021-04-06] MEDS ORDERED: LEVOFLOXACIN500 MG PO (08:24)
[2021-04-06] MEDS ORDERED: DOXYCYCLINE 10100 MG PO (08:24)
[2021-04-06 11:11] VITALS: BP 124/46
[2021-04-06 11:14] VITALS: BP 124/46
[2021-04-06] MEDS ORDERED: APAP W/CODEINE1 TA2 PO (12:42)
== END 2021-04-06 13:28 | disposition home or self-care (01) | DRG 571 ==
LOC: M.ERS 21:18 → M.TBA-ER 22:49 → M.3W 04-02 13:50
PROVIDERS: Internal Medicine; Personal Emergency Response Attendant; ADMIT Internal Medicine; ATTEND Internal Medicine
PROC: B548ZZA Ultrasonography of Superior Vena Cava, Guidance (ICD-10-PCS; principal; 2021-04-01)
PROC: 02HV33Z Insertion of Infusion Device into Superior Vena Cava, Percutaneous Approach (ICD-10-PCS; principal; 2021-04-01)
PROC: 0JBP0ZZ Excision of Left Lower Leg Subcutaneous Tissue and Fascia, Open Approach (ICD-10-PCS; 2021-04-02)
PROC: 0JBN0ZZ Excision of Right Lower Leg Subcutaneous Tissue and Fascia, Open Approach (ICD-10-PCS; 2021-04-02)
DX: L03.116 Cellulitis of left lower limb (principal); I96 Gangrene, not elsewhere classified; L97.929 Non-pressure chronic ulcer of unspecified part of left lower leg with unspecified severity; L97.919 Non-pressure chronic ulcer of unspecified part of right lower leg with unspecified severity; F41.9 Anxiety disorder, unspecified; L03.115 Cellulitis of right lower limb; Z20.822 Contact with and (suspected) exposure to COVID-19; J45.909 Unspecified asthma, uncomplicated; I87.8 Other specified disorders of veins; Z79.899 Other long term (current) drug therapy; Z88.6 Allergy status to analgesic agent; Z87.891 Personal history of nicotine dependence